=== PATIENT | male | born 1995 | race Two or more races ===

== ENCOUNTER 2022-04-07 22:52 | Emergency (ER) | payer OTHER ==
[~2022-04-07] VITALS: Ht 180.3 cm; Wt 77.1 kg
[2022-04-07 23:39] VITALS: BP 131/84
[2022-04-07] MEDS ORDERED: SILVER SULFADIAZINE CREAM 25 GM TUBE ONE (23:45)
[2022-04-07] MEDS ORDERED: IBUPROFEN 400 MG TABLET ONE (23:50)
[2022-04-08] MEDS ORDERED: IBUPROFEN 400 MG TABLET PO ONE
[2022-04-08] MEDS ORDERED: SILVER SULFADIAZINE 50 GM JAR TP PRN
== END 2022-04-08 00:03 | disposition home or self-care (01) ==
LOC: ER 22:54
DX: T23.101A Burn of first degree of right hand, unspecified site, initial encounter (principal); X11.8XXA Contact with other hot tap-water, initial encounter; Y93.89 Activity, other specified; Y92.89 Other specified places as the place of occurrence of the external cause; Y99.8 Other external cause status

== ENCOUNTER 2023-08-02 21:42 | Emergency (ER) | payer OTHER ==
[~2023-08-02] VITALS: Ht 180.3 cm; Wt 77.1 kg
[2023-08-02 23:19] VITALS: BP 110/77; TEMP 97.8
[2023-08-03 00:06] LABS: BASOPHILS # (AUTO) 0.1 K/uL (0.0-0.2); BASOPHILS % (AUTO) 1.4 % (0.0-2.0); EOSINOPHILS # (AUTO) 0.4 K/uL (0.0-0.7); EOSINOPHILS % (AUTO) 4.8 % (0.0-6.0); HEMATOCRIT 45 % (39-51); LYMPHOCYTES # (AUTO) 2.3 K/uL (0.8-4.8); LYMPHOCYTES % (AUTO) 29.1 % (20.0-44.0); MEAN CORPUSCULAR HEMOGLOBIN 30 PG (26.0-33.0); MEAN CORPUSCULAR HGB CONC 34 g/dl (31.0-36.0); MEAN CORPUSCULAR VOLUME 88 fL (80-96); MONOCYTES # (AUTO) 0.9 K/uL (0.1-1.30); MONOCYTES % (AUTO) 11.2 % (2.0-12.0); NEUTROPHILS # (AUTO) 4.2 K/uL (1.8-8.9); NEUTROPHILS % (AUTO) 53.5 % (43.0-81.0); PLATELET COUNT (AUTO) 217 K/uL (150-450); RED BLOOD CELL COUNT(AUTO) 5.05 MIL/uL (4.5-6.0); RED CELL DISTRIBUTION WIDTH 13.2 % (11.5-15.0); WHITE BLOOD COUNT (AUTO) 7.8 K/uL (4.3-11.0)
[2023-08-03 00:37] LABS: CALCIUM, SERUM 9.2 mg/dL (8.5-10.1); CARBON DIOXIDE 28 mmol/L (21-32); CHLORIDE 103 mmol/L (98-107); CREATININE 0.7 mg/dL (0.6-1.3); GLUCOSE 95 mg/dL (74-106); INR 0.93 (0.91-1.10); POTASSIUM 3.9 mmol/L (3.5-5.1); PROTHROMBIN TIME 9.9 SECS (9.2-11.1); SODIUM SERUM 137 mmol/L (136-145); UREA NITROGEN, BLOOD 11 mg/dL (7-18)
[2023-08-03 01:00] LABS: ALANINE AMINOTRANSFERASE 18 U/L (12-78); ALBUMIN 3.9 g/dL (3.4-5.0); ALCOHOL, BLOOD < 3 mg/dL (0-10); ALKALINE PHOSPHATASE 67 U/L (46-116); ASPARTATE AMINOTRANSFERASE 13 U/L (15-37); BILIRUBIN,TOTAL 0.3 mg/dL (0.2-1.0); TOTAL PROTEIN, SERUM 7.6 g/dL (6.4-8.2)
[2023-08-03] MEDS ORDERED: CLIN150C16 PO (01:31)
[2023-08-03 01:42] VITALS: O2SAT 99
[2023-08-03 01:42] LABS: APPEARANCE,URINE CLEAR (CLEAR); BILIRUBIN,URINE NEGATIVE (NEGATIVE); BLOOD, URINE NEGATIVE Ery/uL (NEGATIVE); COLOR,URINE YELLOW (YELLOW); KETONES,URINE NEGATIVE (NEGATIVE); LEUKOCYTE ESTERASE ,URINE NEGATIVE (NEGATIVE); NITRITE, URINE NEGATIVE (NEGATIVE); PROTEIN,URINE NEGATIVE (NEGATIVE); UGLUCOSE NEGATIVE (NEGATIVE); UROBILINOGEN,URINE 0.2 EU/dL (0.2)
[2023-08-03 01:53] LABS: AMPHETAMINE, URINE NEGATIVE (NEGATIVE); BARBITURATE, URINE NEGATIVE (NEGATIVE); BENZODIAZEPINE, URINE NEGATIVE (NEGATIVE); COCCAINE, URINE NEGATIVE (NEGATIVE); OPIATE, URINE NEGATIVE (NEGATIVE); PHENCYCLIDINE SCREEN,URINE NEGATIVE (NEGATIVE)
[2023-08-03 01:57] LABS: CANNABINOID, URINE POSITIVE (NEGATIVE)
== END 2023-08-03 01:43 | disposition home or self-care (01) ==
LOC: ER 21:42
DX: S06.0XAA Concussion with loss of consciousness status unknown, initial encounter (principal); L03.211 Cellulitis of face; V89.2XXA Person injured in unspecified motor-vehicle accident, traffic, initial encounter; Y93.89 Activity, other specified; Y92.89 Other specified places as the place of occurrence of the external cause; Y99.8 Other external cause status
CPT/HCPCS: 36415; 70450-TC; 80053-TC; 85025-TC; 85610-TC; G0480

== ENCOUNTER 2023-12-31 10:40 | Emergency (ER) | payer OTHER ==
[~2023-12-31] VITALS: Ht 180.3 cm; Wt 81.6 kg
[~2023-12-31 10:40] MED LIST: CLIN150C16 PO
[2023-12-31 10:51] VITALS: BP 126/86; TEMP 97.9
[2023-12-31] MEDS ORDERED: MUPI15CR TP (11:24)
[2023-12-31] MEDS ORDERED: IBUP-1955 PO (11:24)
[2023-12-31 11:32] VITALS: O2SAT 100
== END 2023-12-31 11:38 | disposition home or self-care (01) ==
LOC: ER 10:43
DX: S93.402A Sprain of unspecified ligament of left ankle, initial encounter (principal); S00.01XA Abrasion of scalp, initial encounter; F10.129 Alcohol abuse with intoxication, unspecified; F19.10 Other psychoactive substance abuse, uncomplicated; X50.1XXA Overexertion from prolonged static or awkward postures, initial encounter; Y93.89 Activity, other specified; Y92.89 Other specified places as the place of occurrence of the external cause; Y99.8 Other external cause status
CPT/HCPCS: 73610-TC